=== PATIENT | female | born 1950 | race Caucasian/White ===

== ENCOUNTER 2019-08-21 05:25 | Inpatient (IN) | payer MEDICARE, BC ==
[2019-08-11 14:28] LABS: BASOPHILS # (AUTO) 0.1 X10'3 (0-0.2); BASOPHILS % (AUTO) 0.7 % (0-1); EOSINOPHILS # (AUTO) 0.1 X10'3 (0-0.9); EOSINOPHILS % (AUTO) 1.8 % (0-6); LYMPHOCYTES # (AUTO) 2.1 X10'3 (1.1-4.8); LYMPHOCYTES % (AUTO) 26.8 % (21-51); MEAN CORPUSCULAR HEMOGLOBIN 29.2 PG (27.0-31.0); MEAN CORPUSCULAR HGB CONC 33.5 g/dL (33.0-36.5); MEAN CORPUSCULAR VOLUME 86.9 FL (78-98); MEAN PLATELET VOLUME 6.5 FL (7.4-10.4); MONOCYTES # (AUTO) 0.5 X10'3 (0-0.9); MONOCYTES % (AUTO) 6.5 % (2-12); NEUTROPHILS % (AUTO) 64.2 % (42-75); PRE OP HEMATOCRIT 37.7 % (35.0-45.0); PRE OP HEMOGLOBIN 12.6 g/dL (12.0-16.0); PRE OP PLATELET COUNT 368 X10'3 (140-440); RED BLOOD COUNT 4.33 X10'6 (4.20-5.60); RED CELL DISTRIBUTION WIDTH 14.6 % (11.5-14.5)
[2019-08-11 14:40] LABS: PRE OP PROTIME 10.3 SECONDS (9.0-12.0)
[2019-08-11 15:02] LABS: ALBUMIN/GLOBULIN RATIO 1.2 (1.1-1.5); ALKALINE PHOSPHATASE 53 IU/L (46-116); BLOOD UREA NITROGEN 11 MG/DL (7-18); BUN/CREATININE RATIO 15.7 (6.6-38.0); CALCIUM 9.1 MG/DL (8.5-10.1); CHLORIDE 104 MMOL/L (99-107); PRE OP ALT 24 U/L (30-65); PRE OP ANION GAP 11 (8-16); PRE OP AST 20 U/L (10-37); PRE OP BILIRUB, TOTAL 0.3 MG/DL (0.0-1.0); PRE OP GLUCOSE 147 MG/DL (70-104); PRE OP POTASSIUM 3.7 MMOL/L (3.4-5.1); PRE OP SODIUM 140 MMOL/L (135-145); TOTAL CARBON DIOXIDE 25.4 MMOL/L (24-32); TOTAL PROTEIN 7.4 G/DL (6.4-8.2); eGFR 83 ML/MIN
[2019-08-21] VITALS (22 sets, daily range): BP systolic 119–188; BP diastolic 53–111
[~2019-08-21] VITALS: Ht 168.9 cm; Wt 74.4 kg
[~2019-08-21 05:25] MED LIST: ATOR40TA PO; CITA20TA28 PO; GLUC-95 PO; HYDR-3965 PO; LEVO75TA PO; MIRT15TA PO; MONT10TA21 PO; OMEP20CA15 PO; PANT-47 PO; SOLI5TAB2 PO; ringers solution, lacted 1,000 ML IV SCH
[2019-08-21] MEDS ORDERED: ceFAZolin 2gm in dextrose, iso 50 ML IV ONE (05:30)
[2019-08-21] MEDS ORDERED: famotidine 20mg tablet PO ONE (05:30)
[2019-08-21] MEDS ORDERED: vancomycin 1,500 MG in NS 300ml IV soln IV ONE (05:30)
[2019-08-21] MEDS ORDERED: tranexamic acid inj. 700 MG in normal saline 100ml IV soln 100 ML IV ONE ×2 (05:30→06:30)
[2019-08-21] MEDS ORDERED: LIDOcaine 1% (10mg/ml) 2ml vial ONE (06:17)
[2019-08-21] MEDS ORDERED: ketorolac trometh. 30mg/ml inj. ONE (06:40)
[2019-08-21] MEDS ORDERED: ROPIVAcaine 0.5% (5mg/ml) 30ml vial ONE ×2 (06:41→08:05)
[2019-08-21] MEDS ORDERED: sevoflurane 250ml liquid IH ONE (07:11)
[2019-08-21] MEDS ORDERED: neostigmine methylsulfate 1 MG/ML 10ml vial ONE (07:11)
[2019-08-21] MEDS ORDERED: glycopyrrolate 0.2mg/ml inj ONE (07:11)
[2019-08-21] MEDS ORDERED: acetaminophen 1000 MG/100ml vial IV ONE (07:11)
[2019-08-21] MEDS ORDERED: fentaNYL/PF 50MCG/1 ML 2ML syringe ONE ×2 (07:14→08:06)
[2019-08-21] MEDS ORDERED: midazolam 2 mg/2 ml injection ONE ×2 (07:14)
[2019-08-21] MEDS ORDERED: propofol inj 20 ML IV ONE (08:05)
[2019-08-21] MEDS ORDERED: dexamethasone sod phosphate 4mg/ml inj. ONE (08:05)
[2019-08-21] MEDS ORDERED: rocuronium 10mg/ml inj IV ONE (08:05)
[2019-08-21] MEDS ORDERED: ondansetron/PF 4mg/2ml inj ONE (08:05)
[2019-08-21] MEDS ORDERED: LIDOcaine 2% (20mg/ml) 5ml vial ONE (08:05)
[2019-08-21] MEDS ORDERED: ROPIVAcaine 0.2%/PF PUMP/bolus 550 ML INTERSCALE SCH (08:44)
[2019-08-21] MEDS ORDERED: ringers solution, lacted 1,000 ML IV SCH (08:44)
[2019-08-21] MEDS ORDERED: HYDROmorphone inj. 0.5 MG/0.5 ML DISP.SYRIN IV PRN ×3 (08:45→09:50)
[2019-08-21] MEDS ORDERED: ondansetron/PF 4mg/2ml inj IV PRN ×2 (08:45→09:50)
[2019-08-21] MEDS ORDERED: morphine 2 MG/ML inj. syringe IV PRN (08:45)
[2019-08-21] MEDS ORDERED: ROPIVAcaine 0.2% (10 MG/5 ML) BOLUS INJECTION INTERSCALE PRN (08:45)
[2019-08-21] MEDS ORDERED: ePHEDrine 50MG/ML INJ. ONE (09:02)
[2019-08-21] MEDS ORDERED: labetalol 20mg/4ml (5mg/ml) syringe IV ONE (09:02)
--- NOTE | 2019-08-21 09:37 | NUR ---
Received from OR via , accompanied by Anesthesiologist DR CHRISTIAN and report given by Anesthesiolgist. AWAKENS TO VOOICE. VITALS STABLE. DRESSING DI. ANTONETTE PAIN. BREATH SOUNDS WEEZY AND O2 SATS IN LOW 90S ON 10LT. RESP TX ORDERED.
[2019-08-21] MEDS ORDERED: ipratropium/albuterol 3ml nebule NEB PRN (09:45)
[2019-08-21] MEDS ORDERED: bisacodyl 10mg suppository rectal RC PRN (09:50)
[2019-08-21] MEDS ORDERED: magnesium hydroxide 30ml (MOM) UD suspension PO PRN (09:50)
[2019-08-21] MEDS ORDERED: diphenhydrAMINE 25mg capsule PO PRN ×2 (09:50)
[2019-08-21] MEDS ORDERED: oxyCODONE IR 5mg (immed. release) tablet PO PRN ×2 (09:50)
[2019-08-21] MEDS ORDERED: acetaminophen 325mg tablet PO PRN (09:50)
[2019-08-21] MEDS ORDERED: ipratropium/albuterol 3ml nebule ONE (09:51)
[2019-08-21] MEDS ORDERED: LEVO100T PO (10:42)
--- NOTE | 2019-08-21 11:27 | NUR ---
Report called to receiving nurse. Transferred via [facility] . Special Issues communicated to receiving nurse. AWAKE AND ORIENTED. VITALS STABLE. DRESSING DI. STATES PAIN IMPROVING. TO ORTHO RM [id number] AT THIS TIME.
[2019-08-21] MEDS: HYDROcodone/acetaminophen 10/325mg tab PO PRN ×3 (12:52→21:26)
[2019-08-21] MEDS ORDERED: TRANEXAMIC ACID IV ONE (13:00)
[2019-08-21] MEDS ORDERED: NORMAL SALINE IV ONE (13:00)
[2019-08-21] MEDS: acetaminophen 325mg tablet PO SCH ×2 (14:05→21:26)
[2019-08-21] MEDS: ceFAZolin 1GM/D5W- ADD-VANTAGE 50 ML IV SCH (16:32)
[2019-08-21] MEDS: potassium cl 20mEq in 1/2 NS 1,000 ML IV SCH ×2 (16:33→17:50)
[2019-08-21] MEDS ORDERED: metoclopramide 5 mg/ml inj IV PRN (19:30)
[2019-08-21] MEDS ORDERED: vancomycin/NS 1 GM ADD-VANTAGE 250 ML IV SCH (20:00)
[2019-08-21] MEDS ORDERED: non-formulary drug (Glucosamine HCl/Chondr Su A Na (Cidaflex Tablet) 1 TAB) PO SCH (20:00)
[2019-08-21] MEDS ORDERED: sennosides 8.6mg tablet PO SCH (21:00)
[2019-08-21] MEDS ORDERED: mirtazapine 15mg tablet PO SCH (21:00)
[2019-08-21] MEDS: oxybutynin 5mg tablet PO SCH (21:25)
[2019-08-22] MEDS: ceFAZolin 1GM/D5W- ADD-VANTAGE 50 ML IV SCH (01:10)
[2019-08-22] MEDS: acetaminophen 325mg tablet PO SCH ×2 (01:11→08:41)
[2019-08-22] MEDS: potassium cl 20mEq in 1/2 NS 1,000 ML IV SCH (01:50)
[2019-08-22 02:00] VITALS: BP 162/79
[2019-08-22] MEDS: HYDROcodone/acetaminophen 10/325mg tab PO PRN (04:26)
[2019-08-22 06:00] VITALS: BP 166/80
--- NOTE | 2019-08-22 06:32 | NUR ---
REPORT GIVEN TO MODESTA BURRIS
[2019-08-22 06:56] LABS: BASOPHILS % (AUTO) 0.4 % (0-1); EOSINOPHILS % (AUTO) 0.1 % (0-6); HEMATOCRIT 29.9 % (35.0-45.0); HEMOGLOBIN 10.1 g/dl (12.0-16.0); LYMPHOCYTES # (AUTO) 0.7 X10'3 (1.1-4.8); LYMPHOCYTES % (AUTO) 6.9 % (21-51); MEAN CORPUSCULAR HEMOGLOBIN 29.3 PG (27.0-31.0); MEAN CORPUSCULAR HGB CONC 33.8 g/dL (33.0-36.5); MEAN CORPUSCULAR VOLUME 86.7 FL (78-98); MEAN PLATELET VOLUME 6.8 FL (7.4-10.4); MONOCYTES # (AUTO) 0.8 X10'3 (0-0.9); MONOCYTES % (AUTO) 7.7 % (2-12); NEUTROPHILS # (AUTO) 9.1 X10'3 (1.8-7.7); NEUTROPHILS % (AUTO) 84.9 % (42-75); PLATELET COUNT 265 X10'3 (140-440); RED BLOOD COUNT 3.45 X10'6 (4.20-5.60); RED CELL DISTRIBUTION WIDTH 13.9 % (11.5-14.5); WHITE BLOOD COUNT 10.7 X10'3 (4.5-11.0)
[2019-08-22] MEDS ORDERED: levoTHYROXINE 100mcg tablet PO SCH (07:00)
[2019-08-22 07:03] LABS: ANION GAP 8 (8-16); CHLORIDE 98 MMOL/L (99-107); POTASSIUM 3.5 MMOL/L (3.5-5.1); SODIUM 131 MMOL/L (135-145); TOTAL CARBON DIOXIDE 24.7 MMOL/L (24-32)
[2019-08-22] MEDS: oxybutynin 5mg tablet PO SCH (08:00)
[2019-08-22] MEDS ORDERED: levoTHYROXINE 75mcg tablet PO SCH (08:00)
[2019-08-22] MEDS ORDERED: atorvastatin 20mg tablet PO SCH ×2 (08:00→21:00)
[2019-08-22] MEDS ORDERED: citalopram 20mg tablet PO SCH (08:00)
[2019-08-22] MEDS ORDERED: pantoprazole 40mg Tablet.DR PO SCH ×2 (08:00)
[2019-08-22] MEDS ORDERED: aspirin 325mg tablet PO SCH (08:30)
[2019-08-22] MEDS: montelukast 10mg tablet PO SCH ×2 (08:40→08:53)
[2019-08-22] MEDS ORDERED: ONQPUMP ADDCANAL (09:21)
[2019-08-22 10:00] VITALS: BP 139/82
--- NOTE | 2019-08-22 11:39 | NUR ---
Joint Replacement Consult: Pt seen by FRANCISCO for written/verbal high protein ed w/ RD contact information provided. Addendum: 08/22/19 at [address] Amended: Links added.
[2019-08-22] MEDS ORDERED: montelukast 10mg tablet PO SCH (21:00)
[2019-08-23] MEDS ORDERED: acetaminophen 325mg tablet PO PRN (09:50)
== END 2019-08-22 12:15 | disposition home or self-care (01) | DRG 483 ==
LOC: PAS IN 05:25 → UNDOADMIN 05:25 → EDSTATUS 07:30 → PAS IN 09:50 → ORTHO 4S 11:35
PROVIDERS: ADMIT Orthopaedic Surgery; ATTEND Orthopaedic Surgery
PROC: 0RRK00Z Replacement of Left Shoulder Joint with Reverse Ball and Socket Synthetic Substitute, Open Approach (ICD-10-PCS; principal; 2019-08-21 07:11)
DX: M75.122 Complete rotator cuff tear or rupture of left shoulder, not specified as traumatic (principal); M87.822 Other osteonecrosis, left humerus; D62 Acute posthemorrhagic anemia; M25.512 Pain in left shoulder; M19.112 Post-traumatic osteoarthritis, left shoulder; K21.9 Gastro-esophageal reflux disease without esophagitis; E03.9 Hypothyroidism, unspecified; F32.9 Major depressive disorder, single episode, unspecified
CPT/HCPCS: 36415; 80051; 80053; 82948; 84443; 85025; 85610; 85730; 87081; 93005; 94640; 94760; 97110; 97116; 97161; 97530; A4565; A4618; A7000; C1776; G0378; J0131; J0690; J1100; J1170; J1885; J2001; J2250; J2405; J2704; J2710; J2765; J2795; J3010; J3370; J3480; J3490; J7040; J7120